=== PATIENT | female | born 1975 | race Caucasian/White ===

== ENCOUNTER 2020-08-15 19:27 | Emergency (ER) | payer OTHER ==
[2020-08-15 20:52] LABS: #Eosinphils 0.3 10x3/uL (0.0-0.5); #Monocytes 0.5 10x3/uL (0.0-1.1); #Neutrophils 10.5 10x3/uL (1.5-8.4); %Basophils 0.3 % (0.0-2.0); %Eosinophils 2.8 % (0.0-6.0); %Lymphocytes 7.6 % (18.0-47.0); %Monocytes 3.8 % (0.0-10.0); %Neutrophils 85.3 % (40.0-75.0); Hemoglobin 13.9 g/dL (12.0-15.5); Mean Corpuscular Hemoglobin 32.9 pg (27.0-33.0); Mean Corpuscular Volume 94.1 fl (81.6-98.3); Mean Platelet Volume 9.9 fl (7.4-10.4); Platelet Count 274 10x3/uL (150-450); RBC Distribution Width 11.9 % (11.5-14.5); Red Blood Cell (RBC) Count 4.22 10x6/uL (3.90-5.03); White Blood Cell (WBC) Count 12.3 10x3/uL (3.5-10.5)
[2020-08-15] MEDS ORDERED: Ketorolac Tromethamine 30 MG/ML VIAL ONE (21:05)
[2020-08-15] MEDS ORDERED: Ondansetron ODT 4 MG TAB ONE (21:05)
[2020-08-15 21:06] LABS: ALT (SGPT) 38 U/L (8-55); AST (SGOT) 46 U/L (5-34); Albumin 4.3 g/dL (3.5-5.0); Alkaline Phosphatase 90 U/L (40-110); Anion Gap 15 mmol/L (10-20); BUN (Urea Nitrogen) 9 mg/dL (7.0-18.7); Calc. Creatinine Clearance 0 mL/min (70-130); Calcium 9.3 mg/dL (7.8-10.44); Carbon Dioxide 25 mmol/L (22-29); Chloride 101 mmol/L (98-107); Globulin 3.4 g/dL (2.4-3.5); Glucose 126 mg/dL (70-105); Potassium 3.5 mmol/L (3.5-5.1); Protein, Total 7.7 g/dL (6.0-8.3); Sodium 137 mmol/L (136-145)
[2020-08-15 21:54] LABS: Bilirubin Neg (Negative); Blood, Urine Negative (Negative); Clarity Clear (Clear); Glucose, Urine (Dipstick) Normal (Negative); Ketone, Urine 15 mg/dL (Negative); Leukocyte Negative (Negative); Nitrite Negative (Negative); Protein, Urine (Dipstick) Negative (Neg-Trace); Specific Gravity, Urine 1.015 (1.002-1.036)
== END 2020-08-15 22:15 | disposition home or self-care (01) ==
LOC: CSHERS 19:27
DX: R11.2 Nausea with vomiting, unspecified (principal); R51.9 Headache, unspecified; E78.5 Hyperlipidemia, unspecified; E11.9 Type 2 diabetes mellitus without complications; K21.9 Gastro-esophageal reflux disease without esophagitis; G40.909 Epilepsy, unspecified, not intractable, without status epilepticus; G47.30 Sleep apnea, unspecified; Z79.899 Other long term (current) drug therapy
CPT/HCPCS: 74018; 80053; 81003; 85025; 96372; J1885; Q0162

== ENCOUNTER 2021-05-05 08:40 | Outpatient (CLI) | payer OTHER ==
[2021-05-05 11:56] LABS: Hemoglobin 12.6 g/dL (12.0-15.5); Mean Corpuscular HGB CONC 33.4 g/dL (32.0-36.0); Mean Corpuscular Hemoglobin 31.5 pg (27.0-33.0); Mean Corpuscular Volume 94.3 fl (81.6-98.3); Mean Platelet Volume 10.4 fl (7.4-10.4); Platelet Count 299 10x3/uL (150-450); RBC Distribution Width 11.9 % (11.5-14.5); White Blood Cell (WBC) Count 8.1 10x3/uL (3.5-10.5)
[2021-05-05 12:10] LABS: Anion Gap 15 mmol/L (10-20); BUN (Urea Nitrogen) 10 mg/dL (7.0-18.7); Calc. Creatinine Clearance 0 mL/min (70-130); Carbon Dioxide 26 mmol/L (22-29); Chloride 105 mmol/L (98-107); Glucose 132 mg/dL (70-105); Potassium 4.1 mmol/L (3.5-5.1); Sodium 142 mmol/L (136-145)
[2021-05-05 17:37] LABS: SARS-CoV-2 PCR by NAA Not Detected (NotDetected)
== END 2021-05-05 08:41 | disposition home or self-care (01) ==
LOC: CSHLAB 08:40
PROVIDERS: ATTEND Orthopaedic Surgery
DX: Z01.818 Encounter for other preprocedural examination (principal); Z20.822 Contact with and (suspected) exposure to COVID-19
CPT/HCPCS: 80048; 85027; 93005; 93010; U0003; U0005

== ENCOUNTER 2021-05-08 05:36 | Day surgery (SDC) | payer OTHER ==
[2021-05-06 13:17] VITALS: BMI 29.2
[2021-05-08] MEDS ORDERED: Bupivacaine PF 0.5% 30 ML VIAL ONE (06:54)
[2021-05-08] MEDS ORDERED: Neomycin-Polymyxin 1 ML AMP ONE (06:55)
[2021-05-08] MEDS ORDERED: Midazolam HCl 2 mg/2 ml Vial ONE (07:06)
[2021-05-08] MEDS ORDERED: Ondansetron PF 4 MG/2 ML Vial ONE (07:42)
[2021-05-08] MEDS ORDERED: Fentanyl 100 MCG/2 ML VIAL ONE ×2 (07:42→09:05)
[2021-05-08] MEDS ORDERED: Dexamethasone 4 mg/ml Vial ONE (07:42)
[2021-05-08] MEDS ORDERED: Lidocaine 2% PF 5 ML VIAL ONE (07:42)
[2021-05-08] MEDS ORDERED: PROPOFOL 20 ML ONE (07:42)
[2021-05-08] MEDS ORDERED: Metoclopramide HCl 10 MG/2 ML VIAL ONE (07:42)
[2021-05-08] MEDS ORDERED: Ketorolac Tromethamine 30 MG/ML VIAL ONE (09:05)
[2021-05-08] MEDS ORDERED: Meperidine HCl/PF 25 MG/ML VIAL ONE (09:53)
== END 2021-05-08 11:45 | disposition home or self-care (01) ==
LOC: CSHSDC 05:36
PROVIDERS: ATTEND Orthopaedic Surgery
PROC: 0LNP0ZZ Release Left Lower Leg Tendon, Open Approach (ICD-10-PCS; principal; 2021-05-08)
DX: S86.312A Strain of muscle(s) and tendon(s) of peroneal muscle group at lower leg level, left leg, initial encounter (principal)
CPT/HCPCS: 36416; C1713; J0690; J1100; J1885; J2001; J2175; J2250; J2405; J2704; J2765; J3010; S0020

== ENCOUNTER 2021-09-23 17:12 | Emergency (ER) | payer OTHER | END 2021-09-23 18:55 | disposition home or self-care (01) | LOC: CSHERS 17:12 | DX: S50.312A Abrasion of left elbow, initial encounter (principal); S70.212A Abrasion, left hip, initial encounter; E78.5 Hyperlipidemia, unspecified; E11.9 Type 2 diabetes mellitus without complications; K21.9 Gastro-esophageal reflux disease without esophagitis; G40.909 Epilepsy, unspecified, not intractable, without status epilepticus; J45.909 Unspecified asthma, uncomplicated; G47.30 Sleep apnea, unspecified; V03.19XA Pedestrian with other conveyance injured in collision with car, pick-up truck or van in traffic accident, initial encounter ==

== ENCOUNTER 2021-10-11 06:22 | Emergency (ER) | payer OTHER | END 2021-10-11 06:44 | disposition home or self-care (01) | LOC: CSHERS 06:22 | DX: J01.90 Acute sinusitis, unspecified (principal); E11.9 Type 2 diabetes mellitus without complications; K21.9 Gastro-esophageal reflux disease without esophagitis; E78.5 Hyperlipidemia, unspecified; J45.909 Unspecified asthma, uncomplicated; G35 Multiple sclerosis; G40.909 Epilepsy, unspecified, not intractable, without status epilepticus; G47.30 Sleep apnea, unspecified | CPT/HCPCS: 99283 ==

== ENCOUNTER 2021-10-13 09:56 | Outpatient (CLI) | payer OTHER ==
[2021-10-13 11:42] LABS: Hemoglobin 13.4 g/dL (12.0-15.5); Mean Corpuscular HGB CONC 33.8 g/dL (32.0-36.0); Mean Corpuscular Hemoglobin 31.5 pg (27.0-33.0); Mean Corpuscular Volume 93.4 fl (81.6-98.3); Mean Platelet Volume 9.5 fl (7.4-10.4); Platelet Count 331 10x3/uL (150-450); RBC Distribution Width 12.1 % (11.5-14.5); Red Blood Cell (RBC) Count 4.25 10x6/uL (3.90-5.03); White Blood Cell (WBC) Count 7.1 10x3/uL (3.5-10.5)
[2021-10-13 12:18] LABS: Anion Gap 20 mmol/L (10-20); BUN (Urea Nitrogen) 5 mg/dL (7.0-18.7); Calc. Creatinine Clearance 0 mL/min (70-130); Calcium 9.5 mg/dL (7.8-10.44); Carbon Dioxide 22 mmol/L (22-29); Chloride 103 mmol/L (98-107); Glucose 104 mg/dL (70-105); Potassium 4.1 mmol/L (3.5-5.1); Sodium 141 mmol/L (136-145)
[2021-10-13 20:11] LABS: SARS-CoV-2 PCR by NAA Not Detected (NotDetected)
== END 2021-10-13 09:57 | disposition home or self-care (01) ==
LOC: CSHLAB 09:56
PROVIDERS: ATTEND Orthopaedic Surgery
DX: Z01.818 Encounter for other preprocedural examination (principal); Z20.822 Contact with and (suspected) exposure to COVID-19; M76.72 Peroneal tendinitis, left leg; S86.312A Strain of muscle(s) and tendon(s) of peroneal muscle group at lower leg level, left leg, initial encounter
CPT/HCPCS: 80048; 85027; 93005; 93010; U0003; U0005

== ENCOUNTER 2021-10-16 05:40 | Day surgery (SDC) | payer OTHER ==
[2021-10-14 13:28] VITALS: BMI 29.9
[2021-10-16] MEDS ORDERED: Lidocaine 1% MPF 2 ML VIAL ONE (06:55)
[2021-10-16] MEDS ORDERED: Bupivacaine PF 0.5% 30 ML VIAL ONE (06:59)
[2021-10-16] MEDS ORDERED: Neomycin-Polymyxin 1 ML AMP ONE (06:59)
[2021-10-16] MEDS ORDERED: EPINEPHrine 1 MG/ML AMP ONE (07:10)
[2021-10-16] MEDS ORDERED: Fentanyl 100 MCG/2 ML VIAL ONE ×2 (07:19→09:33)
[2021-10-16] MEDS ORDERED: Midazolam HCl 2 mg/2 ml Vial ONE (07:19)
[2021-10-16] MEDS ORDERED: Ropivacaine 0.5% HCl/PF (150 MG/30 ML VIAL) ONE (07:32)
[2021-10-16] MEDS ORDERED: ceFAZolin 2 GM/Dextrose 50 ML IVPB ONE (07:40)
[2021-10-16] MEDS ORDERED: PROPOFOL 20 ML ONE ×2 (07:47→08:26)
[2021-10-16] MEDS ORDERED: Esmolol 100 MG/10 ML VIAL ONE (08:14)
[2021-10-16] MEDS ORDERED: Dexamethasone 20 MG/5 ML VIAL ONE (08:14)
[2021-10-16] MEDS ORDERED: Ondansetron PF 4 MG/2 ML Vial ONE (08:14)
[2021-10-16] MEDS ORDERED: Metoclopramide HCl 10 MG/2 ML VIAL ONE (08:14)
[2021-10-16] MEDS ORDERED: SUGAMMADEX SODIUM 200 MG/2 ML VIAL ONE ×2 (08:18→08:58)
[2021-10-16] MEDS ORDERED: Metoprolol Tartrate 5 MG/5 ML VIAL ONE (08:27)
[2021-10-16] MEDS ORDERED: Albuterol Sulfate HFA (OR ONLY) ONE (08:28)
== END 2021-10-16 12:25 | disposition home or self-care (01) ==
LOC: CSHSDC 05:40
PROVIDERS: ATTEND Orthopaedic Surgery
PROC: 0LUW0KZ Supplement Left Foot Tendon with Nonautologous Tissue Substitute, Open Approach (ICD-10-PCS; principal; 2021-10-16)
DX: S86.312A Strain of muscle(s) and tendon(s) of peroneal muscle group at lower leg level, left leg, initial encounter (principal); M76.72 Peroneal tendinitis, left leg; E11.9 Type 2 diabetes mellitus without complications; K21.9 Gastro-esophageal reflux disease without esophagitis; Z88.5 Allergy status to narcotic agent; Z88.0 Allergy status to penicillin; Z88.8 Allergy status to other drugs, medicaments and biological substances; Z91.048 Other nonmedicinal substance allergy status
CPT/HCPCS: 36416; C1713; C1762; J0171; J0690; J1100; J2250; J2405; J2704; J2765; J2795; J3010; S0020

== ENCOUNTER 2021-12-10 15:01 | Outpatient (CLI) | payer OTHER | END 2021-12-10 15:02 | disposition home or self-care (01) | LOC: CSHMRI 15:01 | PROVIDERS: ATTEND Neurological Surgery | DX: M51.36 Other intervertebral disc degeneration, lumbar region (principal); M54.50 Low back pain, unspecified; M47.816 Spondylosis without myelopathy or radiculopathy, lumbar region | CPT/HCPCS: 72148 ==

== ENCOUNTER 2022-04-29 22:53 | Emergency (ER) | payer OTHER | END 2022-04-29 23:47 | disposition left against medical advice (07) | LOC: CSHERS 22:53 | DX: Z53.21 Procedure and treatment not carried out due to patient leaving prior to being seen by health care provider (principal) ==

== ENCOUNTER 2022-05-28 05:09 | Emergency (ER) | payer OTHER ==
[2022-05-28] MEDS ORDERED: Ipratropium/Albuterol 3 ML NEB ONE (05:21)
[2022-05-28] MEDS ORDERED: methylPREDNISolone Sod Succ/PF 125 MG/2 ML VIAL ONE (05:21)
== END 2022-05-28 07:27 | disposition home or self-care (01) ==
LOC: CSHERS 05:09
DX: J45.901 Unspecified asthma with (acute) exacerbation (principal); E78.5 Hyperlipidemia, unspecified; E11.9 Type 2 diabetes mellitus without complications; K21.9 Gastro-esophageal reflux disease without esophagitis; G40.909 Epilepsy, unspecified, not intractable, without status epilepticus; G43.909 Migraine, unspecified, not intractable, without status migrainosus
CPT/HCPCS: 94644; 94760; 96372; J2930; J7611; J7620

== ENCOUNTER 2022-07-11 23:54 | Observation (INO) | payer OTHER ==
[2022-07-12 00:31] LABS: #Monocytes 0.2 10x3/uL (0.0-1.1); #Neutrophils 7.7 10x3/uL (1.5-8.4); %Basophils 0.2 % (0.0-2.0); %Lymphocytes 16.4 % (18.0-47.0); %Monocytes 2.4 % (0.0-10.0); %Neutrophils 80.5 % (40.0-75.0); Hemoglobin 12.8 g/dL (12.0-15.5); Mean Corpuscular Hemoglobin 31.2 pg (27.0-33.0); Mean Corpuscular Volume 91.7 fl (81.6-98.3); Platelet Count 351 10x3/uL (150-450); RBC Distribution Width 12.2 % (11.5-14.5); White Blood Cell (WBC) Count 9.5 10x3/uL (3.5-10.5)
[2022-07-12 00:36] LABS: ALT (SGPT) 17 U/L (8-55); AST (SGOT) 14 U/L (5-34); Albumin 4.7 g/dL (3.5-5.0); Alkaline Phosphatase 62 U/L (40-110); Anion Gap 17 mmol/L (10-20); BUN (Urea Nitrogen) 14 mg/dL (7.0-18.7); Bilirubin, Total 0.3 mg/dL (0.2-1.2); Calc. Creatinine Clearance 0 mL/min (70-130); Calcium 9.4 mg/dL (7.8-10.44); Carbon Dioxide 22 mmol/L (22-29); Chloride 104 mmol/L (98-107); Estimated GFR 91; Glucose 257 mg/dL (70-105); Lipase 23 U/L (8-78); Protein, Total 7.7 g/dL (6.0-8.3); Sodium 139 mmol/L (136-145)
[2022-07-12] MEDS ORDERED: Morphine 4 MG/ML VIAL ONE ×2 (00:37→01:52)
[2022-07-12] MEDS ORDERED: Ketorolac Tromethamine 30 MG/ML VIAL ONE (01:52)
[2022-07-12] MEDS ORDERED: Nitroglycerin 2% Ointment 1 INCH/1 GM Packet ONE (05:04)
[2022-07-12 06:34] VITALS: BMI 29.9
[2022-07-12] MEDS ORDERED: Dextrose 50% Abboject 50 ML SYRINGE SLOW IVP PRN (07:27)
[2022-07-12] MEDS ORDERED: HumaLOG 300 UNITS/3 ML VIAL SC PRN (07:27)
[2022-07-12] MEDS ORDERED: Dextrose 5% in Water 1,000 ML IV PRN (07:27)
[2022-07-12 07:38] LABS: Troponin I Less than 0.010 ng/mL (< 0.028)
[2022-07-12] MEDS ORDERED: Morphine 2 MG/ML VIAL SLOW IVP PRN (08:15)
[2022-07-12] MEDS ORDERED: Acetaminophen 325 MG TAB PO PRN (08:16)
[2022-07-12] MEDS ORDERED: Loratadine 10 MG TAB PO SCH (09:00)
[2022-07-12] MEDS ORDERED: Escitalopram Oxalate 10 mg Tablet PO SCH ×2 (09:00→21:00)
[2022-07-12 16:48] VITALS: BP 120/75; TEMP 98
[2022-07-12] MEDS ORDERED: Atorvastatin Calcium 40 MG TAB PO SCH (21:00)
== END 2022-07-12 19:25 | disposition home or self-care (01) ==
LOC: CSHERS 23:54 → CSHTELE 07-12 06:27
PROVIDERS: ADMIT Family Medicine; ATTEND Nurse Practitioner Family
DX: R07.89 Other chest pain (principal); E11.9 Type 2 diabetes mellitus without complications; K21.9 Gastro-esophageal reflux disease without esophagitis; E78.49 Other hyperlipidemia; H54.8 Legal blindness, as defined in USA; G35 Multiple sclerosis; I48.0 Paroxysmal atrial fibrillation; F32.A Depression, unspecified; Z79.899 Other long term (current) drug therapy; Z79.84 Long term (current) use of oral hypoglycemic drugs; Z88.0 Allergy status to penicillin; Z88.8 Allergy status to other drugs, medicaments and biological substances
CPT/HCPCS: 36416; 71045; 80053; 83690; 84484; 85025; 93005; 93010; 93306; 96372; 96374; 96375; 96376; G0378; J1650; J1885; J2270

== ENCOUNTER 2022-07-17 19:39 | Inpatient (IN) | payer OTHER ==
[2022-07-17 21:15] LABS: #Basophils 0.1 10x3/uL (0.0-0.2); #Eosinphils 0.4 10x3/uL (0.0-0.5); #Monocytes 0.7 10x3/uL (0.0-1.1); #Neutrophils 6.3 10x3/uL (1.5-8.4); %Basophils 0.7 % (0.0-2.0); %Eosinophils 3.7 % (0.0-6.0); %Lymphocytes 31.4 % (18.0-47.0); %Monocytes 6.6 % (0.0-10.0); %Neutrophils 57.4 % (40.0-75.0); Mean Corpuscular HGB CONC 34.1 g/dL (32.0-36.0); Mean Corpuscular Hemoglobin 31.8 pg (27.0-33.0); Mean Corpuscular Volume 93.2 fl (81.6-98.3); Mean Platelet Volume 9.4 fl (7.4-10.4); Platelet Count 337 10x3/uL (150-450); RBC Distribution Width 12.3 % (11.5-14.5); Red Blood Cell (RBC) Count 4.09 10x6/uL (3.90-5.03); White Blood Cell (WBC) Count 10.9 10x3/uL (3.5-10.5)
[2022-07-17 21:19] LABS: ALT (SGPT) 21 U/L (8-55); AST (SGOT) 19 U/L (5-34); Albumin 4.5 g/dL (3.5-5.0); Alkaline Phosphatase 61 U/L (40-110); Anion Gap 16 mmol/L (10-20); BUN (Urea Nitrogen) 17 mg/dL (7.0-18.7); Bilirubin, Total 0.6 mg/dL (0.2-1.2); Calc. Creatinine Clearance 0 mL/min (70-130); Calcium 9.9 mg/dL (7.8-10.44); Carbon Dioxide 23 mmol/L (22-29); Chloride 105 mmol/L (98-107); Estimated GFR 97; Globulin 3.2 g/dL (2.4-3.5); Glucose 140 mg/dL (70-105); Potassium 3.4 mmol/L (3.5-5.1); Protein, Total 7.7 g/dL (6.0-8.3); Sodium 141 mmol/L (136-145)
[2022-07-17 21:37] LABS: SARS-CoV-2 NAA Rapid Test Not Detected (NotDetected)
[2022-07-17] MEDS ORDERED: methylPREDNISolone Sod Succ 1 GM in Sodium Chloride 0.9% 250 ML 250 ML IVPB SCH (22:45)
[2022-07-17] MEDS ORDERED: Calcium Carbonate 500 MG ChewTAB PO PRN (23:10)
[2022-07-17] MEDS ORDERED: Guaifenesin DM 100-10/5 ML UDCUP PO PRN (23:10)
[2022-07-17] MEDS ORDERED: Dextrose 5% in Water 1,000 ML IV PRN (23:10)
[2022-07-17] MEDS ORDERED: Ondansetron PF 4 MG/2 ML Vial IVP PRN (23:10)
[2022-07-17] MEDS ORDERED: Acetaminophen 325 MG TAB PO PRN (23:10)
[2022-07-17] MEDS ORDERED: Senokot S 8.6-50 MG TAB PO PRN (23:10)
[2022-07-17] MEDS ORDERED: Dextrose 50% Abboject 50 ML SYRINGE SLOW IVP PRN (23:10)
[2022-07-17 23:28] LABS: INR-International Normal Ratio 0.9; PTT 25.7 sec (22.0-33.0); Prothrombin Time 10.2 sec (9.5-12.1)
[2022-07-17] MEDS ORDERED: Ipratropium/Albuterol 3 ML NEB NEB PRN (23:28)
[2022-07-18 00:19] VITALS: BMI 29.8
[2022-07-18] MEDS ORDERED: Potassium Chloride 20 MEQ TAB PO SCH (00:45)
[2022-07-18 04:00] LABS: Bilirubin Neg (Negative); Blood, Urine Negative (Negative); Clarity Clear (Clear); Glucose, Urine (Dipstick) 100 mg/dL (Negative); Ketone, Urine 5 mg/dL (Negative); Leukocyte Negative (Negative); Nitrite Negative (Negative); Protein, Urine (Dipstick) Negative (Neg-Trace); Specific Gravity, Urine 1.015 (1.005-1.030); Urobilinogen Normal mg/dL (Less than 2)
[2022-07-18 04:31] LABS: Bacteria/HPF None Seen HPF (None Seen); RBC/HPF None Seen HPF (0-3); Squamous Epithelial 0-3 HPF (0-3); WBC/HPF 0-3 HPF (0-3)
[2022-07-18 04:35] LABS: #Basophils 0.1 10x3/uL (0.0-0.2); #Eosinphils 0.1 10x3/uL (0.0-0.5); #Monocytes 0.1 10x3/uL (0.0-1.1); %Basophils 0.4 % (0.0-2.0); %Eosinophils 0.4 % (0.0-6.0); %Lymphocytes 11.5 % (18.0-47.0); %Monocytes 0.7 % (0.0-10.0); %Neutrophils 86.5 % (40.0-75.0); Mean Corpuscular HGB CONC 33.6 g/dL (32.0-36.0); Mean Corpuscular Hemoglobin 31.1 pg (27.0-33.0); Mean Corpuscular Volume 92.6 fl (81.6-98.3); Mean Platelet Volume 9.7 fl (7.4-10.4); Platelet Count 350 10x3/uL (150-450); RBC Distribution Width 12.4 % (11.5-14.5); Red Blood Cell (RBC) Count 4.18 10x6/uL (3.90-5.03); White Blood Cell (WBC) Count 11.6 10x3/uL (3.5-10.5)
[2022-07-18 04:48] LABS: Anion Gap 18 mmol/L (10-20); BUN (Urea Nitrogen) 16 mg/dL (7.0-18.7); Calc. Creatinine Clearance 112 mL/min (70-130); Calcium 9.3 mg/dL (7.8-10.44); Carbon Dioxide 20 mmol/L (22-29); Chloride 104 mmol/L (98-107); Estimated GFR 103; Glucose 206 mg/dL (70-105); Magnesium 1.5 mg/dL (1.6-2.6); Potassium 4.4 mmol/L (3.5-5.1); Sodium 138 mmol/L (136-145)
[2022-07-18 05:09] LABS: Thyroid Stimulating Hormone 0.9998 uIU/mL (0.35-4.94)
[2022-07-18] MEDS ORDERED: metFORMIN 500 MG TAB PO SCH (08:00)
[2022-07-18] MEDS ORDERED: Alogliptin 25 MG TAB PO SCH (08:00)
[2022-07-18] MEDS ORDERED: Electrolyte Replacement Protocol 1 EACH FS SCH (08:00)
[2022-07-18] MEDS ORDERED: Magnesium 2 GM/50 ML(in water) 2 GM in Premix Bag 1 BAG IVPB SCH (08:15)
[2022-07-18] MEDS: Loratadine 10 MG TAB PO SCH (09:48)
[2022-07-18] MEDS ORDERED: Magnevist 469MG/ML 20 ML VIAL ONE (11:22)
[2022-07-18] MEDS: HumaLOG 300 UNITS/3 ML VIAL SC PRN ×2 (13:00→18:38)
[2022-07-18] MEDS: Escitalopram Oxalate 10 mg Tablet PO SCH (20:42)
[2022-07-18] MEDS: Atorvastatin Calcium 10 MG TAB PO SCH (20:42)
[2022-07-18] MEDS: methylPREDNISolone Sod Succ 1 GM in Sodium Chloride 0.9% 250 ML 250 ML IVPB SCH (22:18)
[2022-07-18] MEDS ORDERED: methylPREDNISolone Sod Succ/PF 125 MG/2 ML VIAL IVP SCH (23:15)
[2022-07-19 05:05] LABS: #Monocytes 0.1 10x3/uL (0.0-1.1); #Neutrophils 13.7 10x3/uL (1.5-8.4); %Basophils 0.1 % (0.0-2.0); %Monocytes 0.8 % (0.0-10.0); %Neutrophils 87.3 % (40.0-75.0); Hemoglobin 12.6 g/dL (12.0-15.5); Mean Corpuscular HGB CONC 33.3 g/dL (32.0-36.0); Mean Corpuscular Hemoglobin 31.3 pg (27.0-33.0); Mean Platelet Volume 9.9 fl (7.4-10.4); Platelet Count 389 10x3/uL (150-450); RBC Distribution Width 12.2 % (11.5-14.5); Red Blood Cell (RBC) Count 4.02 10x6/uL (3.90-5.03); White Blood Cell (WBC) Count 15.7 10x3/uL (3.5-10.5)
[2022-07-19 05:20] LABS: Anion Gap 21 mmol/L (10-20); BUN (Urea Nitrogen) 17 mg/dL (7.0-18.7); Calc. Creatinine Clearance 110 mL/min (70-130); Calcium 9.2 mg/dL (7.8-10.44); Carbon Dioxide 17 mmol/L (22-29); Chloride 103 mmol/L (98-107); Estimated GFR 101; Glucose 250 mg/dL (70-105); Phosphorus 3.5 mg/dL (2.3-4.7); Potassium 4.5 mmol/L (3.5-5.1); Sodium 136 mmol/L (136-145)
[2022-07-19] MEDS ORDERED: Magnesium 2 GM/50 ML(in water) 2 GM in Premix Bag 1 BAG IVPB SCH (08:00)
[2022-07-19] MEDS ORDERED: Magnevist 469MG/ML 20 ML VIAL ONE (11:26)
[2022-07-19] MEDS: Loratadine 10 MG TAB PO SCH (11:56)
[2022-07-19] MEDS: HumaLOG 300 UNITS/3 ML VIAL SC PRN (11:57)
[2022-07-19 20:01] LABS: INR-International Normal Ratio 0.9; PTT 26.1 sec (22.0-33.0); Prothrombin Time 10.3 sec (9.5-12.1)
[2022-07-19] MEDS: Atorvastatin Calcium 10 MG TAB PO SCH (21:08)
[2022-07-19] MEDS: Escitalopram Oxalate 10 mg Tablet PO SCH (21:08)
[2022-07-19] MEDS: methylPREDNISolone Sod Succ 1 GM in Sodium Chloride 0.9% 250 ML 250 ML IVPB SCH (22:49)
[2022-07-20 04:32] LABS: #Monocytes 0.2 10x3/uL (0.0-1.1); #Neutrophils 12.3 10x3/uL (1.5-8.4); %Basophils 0.1 % (0.0-2.0); %Lymphocytes 9.2 % (18.0-47.0); %Monocytes 1.2 % (0.0-10.0); %Neutrophils 89.1 % (40.0-75.0); Hemoglobin 12.2 g/dL (12.0-15.5); Mean Corpuscular HGB CONC 33.3 g/dL (32.0-36.0); Mean Corpuscular Hemoglobin 31.4 pg (27.0-33.0); Mean Corpuscular Volume 94.3 fl (81.6-98.3); Mean Platelet Volume 10.1 fl (7.4-10.4); Platelet Count 345 10x3/uL (150-450); RBC Distribution Width 12.4 % (11.5-14.5); Red Blood Cell (RBC) Count 3.88 10x6/uL (3.90-5.03); White Blood Cell (WBC) Count 13.8 10x3/uL (3.5-10.5)
[2022-07-20 04:49] LABS: Anion Gap 16 mmol/L (10-20); BUN (Urea Nitrogen) 21 mg/dL (7.0-18.7); Calc. Creatinine Clearance 112 mL/min (70-130); Calcium 8.8 mg/dL (7.8-10.44); Carbon Dioxide 21 mmol/L (22-29); Chloride 102 mmol/L (98-107); Estimated GFR 103; Glucose 262 mg/dL (70-105); Magnesium 2.3 mg/dL (1.6-2.6); Potassium 4.5 mmol/L (3.5-5.1); Sodium 134 mmol/L (136-145)
[2022-07-20] MEDS: Loratadine 10 MG TAB PO SCH (08:11)
[2022-07-20] MEDS: Alogliptin 6.25 MG TAB PO SCH ×2 (08:34→16:38)
[2022-07-20] MEDS ORDERED: Lantus 1000 UNITS/10 ML VIAL SC SCH (10:15)
[2022-07-20] MEDS ORDERED: Lidocaine 1% PF 5 ML VIAL ONE ×2 (13:45→14:00)
[2022-07-20] MEDS ORDERED: Sodium Bicarbonate 2.5 MEQ/5 ML VIAL ONE (13:45)
[2022-07-20 15:20] LABS: CSF, Glucose 157 mg/dl (40-70); CSF, Protein 28 mg/dL (15-40)
[2022-07-20 15:56] LABS: Color Of CSF Supernatant COLORLESS (Colorless); Unspun CSF Color YELLOW (Colorless)
[2022-07-20 15:57] LABS: Tube # 1
[2022-07-20 16:07] LABS: CSF Source CSF; Clarity Clear (Clear); Tube # 3
[2022-07-20 16:08] LABS: CSF RBC Count - Manual 0 /cu.mm (None Seen); CSF WBC/NonHematics Count-Man 0 /cu.mm (0-5)
[2022-07-20] MEDS: HumaLOG 300 UNITS/3 ML VIAL SC PRN ×2 (16:38→23:49)
[2022-07-20] MEDS: Atorvastatin Calcium 10 MG TAB PO SCH (20:39)
[2022-07-20] MEDS: Escitalopram Oxalate 10 mg Tablet PO SCH (20:39)
[2022-07-20] MEDS: methylPREDNISolone Sod Succ 1 GM in Sodium Chloride 0.9% 250 ML 250 ML IVPB SCH (23:28)
[2022-07-21] MEDS: HumaLOG 300 UNITS/3 ML VIAL SC PRN ×4 (06:33→23:27)
[2022-07-21] MEDS: Alogliptin 6.25 MG TAB PO SCH ×2 (08:26→17:51)
[2022-07-21] MEDS: Lantus 1000 UNITS/10 ML VIAL SC SCH (08:26)
[2022-07-21] MEDS: Loratadine 10 MG TAB PO SCH (08:27)
[2022-07-21] MEDS: Atorvastatin Calcium 10 MG TAB PO SCH (20:04)
[2022-07-21] MEDS: Escitalopram Oxalate 10 mg Tablet PO SCH (20:04)
[2022-07-21] MEDS: methylPREDNISolone Sod Succ 1 GM in Sodium Chloride 0.9% 250 ML 250 ML IVPB SCH (23:21)
[2022-07-22] MEDS: HumaLOG 300 UNITS/3 ML VIAL SC PRN ×3 (06:14→17:27)
[2022-07-22] MEDS: Loratadine 10 MG TAB PO SCH (08:45)
[2022-07-22] MEDS: Lantus 1000 UNITS/10 ML VIAL SC SCH (08:45)
[2022-07-22] MEDS: Alogliptin 6.25 MG TAB PO SCH ×2 (08:45→17:27)
[2022-07-22 14:37] LABS: IgG Subclass 1 447 mg/dL (248-810); IgG Subclass 2 320 mg/dL (130-555); IgG Subclass 3 102 mg/dL (15-102); Immunoglobulin - G (Sendout) 880 mg/dL (586-1602)
[2022-07-22] MEDS ORDERED: Lantus 1000 UNITS/10 ML VIAL SC SCH (21:00)
[2022-07-22] MEDS: Atorvastatin Calcium 10 MG TAB PO SCH (22:56)
[2022-07-22] MEDS: Escitalopram Oxalate 10 mg Tablet PO SCH (22:56)
[2022-07-22] MEDS: methylPREDNISolone Sod Succ 1 GM in Sodium Chloride 0.9% 250 ML 250 ML IVPB SCH (23:07)
[2022-07-23] MEDS: HumaLOG 300 UNITS/3 ML VIAL SC PRN (06:22)
[2022-07-23 08:10] VITALS: BP 131/82; TEMP 98
[2022-07-23] MEDS: Alogliptin 6.25 MG TAB PO SCH (09:10)
[2022-07-23] MEDS: Loratadine 10 MG TAB PO SCH (09:11)
[2022-07-23] MEDS: Lantus 1000 UNITS/10 ML VIAL SC SCH (09:14)
== END 2022-07-23 12:25 | disposition home or self-care (01) | DRG 60 ==
LOC: CSHERS 19:39 → CSHTELE 23:10 → UNDOADMIN 07-18 00:14 → CSHTELE 07-18 00:14
PROVIDERS: ADMIT Student in an Organized Health Care Education/Training Program; ATTEND Internal Medicine
PROC: 009U3ZX Drainage of Spinal Canal, Percutaneous Approach, Diagnostic (ICD-10-PCS; principal; 2022-07-20)
PROC: B01B1ZZ Fluoroscopy of Spinal Cord using Low Osmolar Contrast (ICD-10-PCS; 2022-07-20)
DX: G35 Multiple sclerosis (principal); I48.0 Paroxysmal atrial fibrillation; G81.91 Hemiplegia, unspecified affecting right dominant side; E11.9 Type 2 diabetes mellitus without complications; H54.40 Blindness, one eye, unspecified eye; K21.9 Gastro-esophageal reflux disease without esophagitis; E78.5 Hyperlipidemia, unspecified; F43.10 Post-traumatic stress disorder, unspecified; F32.A Depression, unspecified; E66.9 Obesity, unspecified; J45.909 Unspecified asthma, uncomplicated; R53.1 Weakness; H53.8 Other visual disturbances; G43.909 Migraine, unspecified, not intractable, without status migrainosus; G40.909 Epilepsy, unspecified, not intractable, without status epilepticus; G47.33 Obstructive sleep apnea (adult) (pediatric); E87.6 Hypokalemia; Z88.6 Allergy status to analgesic agent; Z88.5 Allergy status to narcotic agent; Z88.0 Allergy status to penicillin; Z88.8 Allergy status to other drugs, medicaments and biological substances; Z79.899 Other long term (current) drug therapy; Z90.49 Acquired absence of other specified parts of digestive tract; Z90.710 Acquired absence of both cervix and uterus; Z98.890 Other specified postprocedural states; Z82.49 Family history of ischemic heart disease and other diseases of the circulatory system; Z87.891 Personal history of nicotine dependence; Z68.29 Body mass index [BMI] 29.0-29.9, adult; Z20.822 Contact with and (suspected) exposure to COVID-19
CPT/HCPCS: 36415; 36416; 62270; 70450; 70553; 72156; 72157; 72158; 80048; 80053; 81001; 82607; 82787; 82945; 83735; 83916; 84100; 84157; 84443; 85025; 85610; 85652; 85730; 86140; 89051; 93005; 93880; 94760; 96365; A9579; J1650; J1815; J2930; J3475; J7050

== ENCOUNTER 2022-07-25 14:24 | Emergency (ER) | payer OTHER | END 2022-07-25 15:33 | disposition home or self-care (01) | LOC: CSHERS 14:24 | DX: G35 Multiple sclerosis (principal); I48.91 Unspecified atrial fibrillation; K21.9 Gastro-esophageal reflux disease without esophagitis; G43.909 Migraine, unspecified, not intractable, without status migrainosus; J45.909 Unspecified asthma, uncomplicated; G40.909 Epilepsy, unspecified, not intractable, without status epilepticus; E11.9 Type 2 diabetes mellitus without complications | CPT/HCPCS: 99284 ==

== ENCOUNTER 2022-09-13 22:44 | Observation (INO) | payer OTHER ==
[2022-09-13 23:41] LABS: #Basophils 0.1 10x3/uL (0.0-0.2); #Eosinphils 1.6 10x3/uL (0.0-0.5); #Monocytes 1.8 10x3/uL (0.0-1.1); #Neutrophils 9.9 10x3/uL (1.5-8.4); %Basophils 0.8 % (0.0-2.0); %Eosinophils 9.4 % (0.0-6.0); %Lymphocytes 21.7 % (18.0-47.0); %Monocytes 10.2 % (0.0-10.0); %Neutrophils 57.6 % (40.0-75.0); Mean Corpuscular Hemoglobin 31.7 pg (27.0-33.0); Mean Corpuscular Volume 93.2 fl (81.6-98.3); Mean Platelet Volume 9.6 fl (7.4-10.4); Platelet Count 489 10x3/uL (150-450); RBC Distribution Width 12.5 % (11.5-14.5); Red Blood Cell (RBC) Count 2.21 10x6/uL (3.90-5.03); White Blood Cell (WBC) Count 17.2 10x3/uL (3.5-10.5)
[2022-09-13 23:51] LABS: BHCG - Serum Negative (NEGATIVE); Pregs Control Background? CLEAR/WHITE (CLR/WHITE); Pregs Control Bar Appear? YES (CONTROL BAR)
[2022-09-13 23:52] LABS: ALT (SGPT) 15 U/L (8-55); AST (SGOT) 17 U/L (5-34); Albumin 4.3 g/dL (3.5-5.0); Alkaline Phosphatase 97 U/L (40-110); Anion Gap 19 mmol/L (10-20); BUN (Urea Nitrogen) 7 mg/dL (7.0-18.7); Bilirubin, Total 0.5 mg/dL (0.2-1.2); Calc. Creatinine Clearance 0 mL/min (70-130); Calcium 9.3 mg/dL (7.8-10.44); Carbon Dioxide 21 mmol/L (22-29); Chloride 102 mmol/L (98-107); Estimated GFR 109; Globulin 3.4 g/dL (2.4-3.5); Glucose 123 mg/dL (70-105); Magnesium 1.5 mg/dL (1.6-2.6); Potassium 3.7 mmol/L (3.5-5.1); Protein, Total 7.7 g/dL (6.0-8.3); Sodium 138 mmol/L (136-145)
[2022-09-14] MEDS ORDERED: Guaifenesin DM 100-10/5 ML UDCUP PO PRN (00:43)
[2022-09-14] MEDS ORDERED: Dextrose 5% in Water 1,000 ML IV PRN (00:43)
[2022-09-14] MEDS ORDERED: Senokot S 8.6-50 MG TAB PO PRN (00:43)
[2022-09-14] MEDS ORDERED: Zolpidem Tartrate 5 MG TAB PO PRN (00:43)
[2022-09-14] MEDS ORDERED: Ondansetron PF 4 MG/2 ML Vial IVP PRN (00:43)
[2022-09-14] MEDS ORDERED: Dextrose 50% Abboject 50 ML SYRINGE SLOW IVP PRN (00:43)
[2022-09-14] MEDS ORDERED: Calcium Carbonate 500 MG ChewTAB PO PRN (00:43)
[2022-09-14] MEDS ORDERED: Acetaminophen 325 MG TAB PO PRN (00:43)
[2022-09-14] MEDS ORDERED: LINACLOTIDE 290 MCG PO PRN (00:47)
[2022-09-14] MEDS ORDERED: Magnesium Sulfate/D5W 1 GM/100 ML BAG IVPB SCH (01:00)
[2022-09-14] MEDS ORDERED: Pantoprazole 40 MG VIAL IVP SCH ×3 (01:00→21:00)
[2022-09-14 01:31] LABS: MONO NEGATIVE CONTROL ZONE White (Negative) (White); MONO POSITIVE CONTROL Pink Line (Positive) (PINK/RED); Mononucleosis NEGATIVE (NEGATIVE)
[2022-09-14 01:40] LABS: Iron 36 ug/dL (50-170); Iron Binding Capacity, Total 359 mcg/dL (265-497)
[2022-09-14 01:56] LABS: Ferritin 113.72 ng/mL (10-291)
[2022-09-14] MEDS ORDERED: Pantoprazole 40 MG VIAL ONE ×2 (04:04→07:37)
[2022-09-14] MEDS ORDERED: metFORMIN 500 MG TAB ONE (07:37)
[2022-09-14] MEDS: metFORMIN 500 MG TAB PO SCH ×2 (08:14→16:39)
[2022-09-14 08:19] VITALS: BMI 30.1
[2022-09-14] MEDS ORDERED: HumaLOG 300 UNITS/3 ML VIAL SC PRN ×2 (08:45)
[2022-09-14 08:51] LABS: #Basophils 0.1 10x3/uL (0.0-0.2); #Eosinphils 1.1 10x3/uL (0.0-0.5); #Monocytes 1.4 10x3/uL (0.0-1.1); #Neutrophils 8.1 10x3/uL (1.5-8.4); %Basophils 0.9 % (0.0-2.0); %Eosinophils 8.1 % (0.0-6.0); %Lymphocytes 17.3 % (18.0-47.0); %Monocytes 10.9 % (0.0-10.0); %Neutrophils 62.4 % (40.0-75.0); Hemoglobin 14.1 g/dL (12.0-15.5); Mean Corpuscular HGB CONC 34.1 g/dL (32.0-36.0); Mean Corpuscular Hemoglobin 31.2 pg (27.0-33.0); Mean Corpuscular Volume 91.4 fl (81.6-98.3); Mean Platelet Volume 9.9 fl (7.4-10.4); Platelet Count 349 10x3/uL (150-450); RBC Distribution Width 13.5 % (11.5-14.5); Red Blood Cell (RBC) Count 4.52 10x6/uL (3.90-5.03); White Blood Cell (WBC) Count 12.9 10x3/uL (3.5-10.5)
[2022-09-14 12:00] LABS: #Basophils 0.1 10x3/uL (0.0-0.2); #Monocytes 1.4 10x3/uL (0.0-1.1); #Neutrophils 7.8 10x3/uL (1.5-8.4); %Basophils 0.7 % (0.0-2.0); %Eosinophils 7.8 % (0.0-6.0); %Lymphocytes 17.5 % (18.0-47.0); %Monocytes 11.4 % (0.0-10.0); %Neutrophils 62.2 % (40.0-75.0); Hemoglobin 14.3 g/dL (12.0-15.5); Mean Corpuscular HGB CONC 34.4 g/dL (32.0-36.0); Mean Platelet Volume 9.2 fl (7.4-10.4); Platelet Count 328 10x3/uL (150-450); RBC Distribution Width 13.8 % (11.5-14.5); Red Blood Cell (RBC) Count 4.62 10x6/uL (3.90-5.03); White Blood Cell (WBC) Count 12.5 10x3/uL (3.5-10.5)
[2022-09-14] MEDS: Loratadine 10 MG TAB PO SCH (12:09)
[2022-09-14 13:59] LABS: SARS-CoV-2 NAA Rapid Test Not Detected (NotDetected)
[2022-09-14] MEDS ORDERED: Atorvastatin Calcium 10 MG TAB PO SCH (21:00)
[2022-09-14] MEDS ORDERED: Montelukast Sodium 10 mg Tablet PO SCH (21:00)
[2022-09-14] MEDS ORDERED: Escitalopram Oxalate 10 mg Tablet PO SCH (21:00)
[2022-09-15] MEDS: Loratadine 10 MG TAB PO SCH (09:10)
[2022-09-15] MEDS: metFORMIN 500 MG TAB PO SCH ×2 (09:10→19:30)
[2022-09-15 17:08] VITALS: BP 139/99; TEMP 98.8
== END 2022-09-15 17:55 | disposition home or self-care (01) ==
LOC: CSHERS 22:44 → CSHERHOLD 09-14 00:31 → INTOOBSV 09-14 00:31 → CSHTELE 09-14 09:30
PROVIDERS: ADMIT Student in an Organized Health Care Education/Training Program; ATTEND Internal Medicine
DX: D72.829 Elevated white blood cell count, unspecified (principal); D64.9 Anemia, unspecified; I48.0 Paroxysmal atrial fibrillation; E11.9 Type 2 diabetes mellitus without complications; K21.9 Gastro-esophageal reflux disease without esophagitis; E78.5 Hyperlipidemia, unspecified; J96.01 Acute respiratory failure with hypoxia; E83.42 Hypomagnesemia; E66.9 Obesity, unspecified; F60.3 Borderline personality disorder; F32.A Depression, unspecified; G47.33 Obstructive sleep apnea (adult) (pediatric); Z90.49 Acquired absence of other specified parts of digestive tract; Z86.69 Personal history of other diseases of the nervous system and sense organs; Z90.710 Acquired absence of both cervix and uterus; Z87.891 Personal history of nicotine dependence; Z88.5 Allergy status to narcotic agent; Z88.6 Allergy status to analgesic agent; Z88.0 Allergy status to penicillin; Z88.8 Allergy status to other drugs, medicaments and biological substances; Z88.1 Allergy status to other antibiotic agents; Z79.899 Other long term (current) drug therapy; Z68.30 Body mass index [BMI] 30.0-30.9, adult
CPT/HCPCS: 36415; 36416; 36430; 71045; 80053; 82274; 82607; 82728; 83010; 83540; 83550; 83615; 83735; 83880; 84484; 84703; 85025; 85046; 86308; 86850; 86900; 86901; 93005; 94760; 94762; 96374; 96376; C9113; G0378; P9016

== ENCOUNTER 2023-07-08 11:48 | Outpatient (CLI) | payer OTHER | END 2023-07-08 11:49 | disposition home or self-care (01) | LOC: CSHMRI 11:48 | PROVIDERS: ATTEND Neuromusculoskeletal Medicine & OMM | DX: G35 Multiple sclerosis (principal); M54.2 Cervicalgia; M54.50 Low back pain, unspecified; R90.82 White matter disease, unspecified; M50.30 Other cervical disc degeneration, unspecified cervical region; M48.8X2 Other specified spondylopathies, cervical region; G95.0 Syringomyelia and syringobulbia; M51.36 Other intervertebral disc degeneration, lumbar region; M51.26 Other intervertebral disc displacement, lumbar region | CPT/HCPCS: 70553; 72148; 72156; 72157 ==

== ENCOUNTER 2023-10-03 15:05 | Emergency (ER) | payer OTHER ==
[2023-10-03] MEDS ORDERED: Lorazepam 2 MG/ML VIAL ONE (16:16)
[2023-10-03 16:50] LABS: #Basophils 0.09 10x3/uL (0.0-0.2); #Eosinphils 1.09 10x3/uL (0.0-0.5); #Monocytes 0.71 10x3/uL (0.0-1.1); %Basophils 0.9 % (0.0-2.0); %Eosinophils 11.2 % (0.0-6.0); %Lymphocytes 26.3 % (18.0-47.0); %Monocytes 7.3 % (0.0-10.0); %Neutrophils 54.2 % (40.0-75.0); Hematocrit 33.5 % (34.9-44.5); Hemoglobin 11.5 g/dL (12.0-15.5); Mean Corpuscular HGB CONC 34.3 g/dL (32.0-36.0); Mean Corpuscular Hemoglobin 33.1 pg (27.0-33.0); Mean Corpuscular Volume 96.5 fl (81.6-98.3); Mean Platelet Volume 9.4 fl (7.4-10.4); Platelet Count 326 10x3/uL (150-450); RBC Distribution Width 12.4 % (11.5-14.5); Red Blood Cell (RBC) Count 3.47 10x6/uL (3.90-5.03); White Blood Cell (WBC) Count 9.8 10x3/uL (3.5-10.5)
[2023-10-03 17:12] LABS: ALT (SGPT) 15 U/L (8-55); AST (SGOT) 16 U/L (5-34); Albumin 3.6 g/dL (3.5-5.0); Alkaline Phosphatase 73 U/L (40-110); Anion Gap 16 mmol/L (10-20); BUN (Urea Nitrogen) 13 mg/dL (7.0-18.7); Bilirubin, Total 0.4 mg/dL (0.2-1.2); Calc. Creatinine Clearance 0 mL/min (70-130); Calcium 9.4 mg/dL (7.8-10.44); Carbon Dioxide 24 mmol/L (22-29); Chloride 101 mmol/L (98-107); Estimated GFR 107; Globulin 3.3 g/dL (2.4-3.5); Glucose 107 mg/dL (70-105); Magnesium 1.7 mg/dL (1.6-2.6); Potassium 3.8 mmol/L (3.5-5.1); Protein, Total 6.9 g/dL (6.0-8.3); Sodium 137 mmol/L (136-145)
[2023-10-03] MEDS ORDERED: levETIRAcetam 500 MG (5 mL) VIAL ONE (18:35)
[2023-10-03 19:41] LABS: Lactic Acid 1.7 mmol/L (0.5-2.2)
== END 2023-10-03 20:48 | disposition short-term general hospital (02) ==
LOC: CSHERS 15:05
DX: G40.909 Epilepsy, unspecified, not intractable, without status epilepticus (principal); I48.91 Unspecified atrial fibrillation; E11.9 Type 2 diabetes mellitus without complications; K21.9 Gastro-esophageal reflux disease without esophagitis; E78.5 Hyperlipidemia, unspecified; Z79.84 Long term (current) use of oral hypoglycemic drugs; Z79.4 Long term (current) use of insulin; Z79.899 Other long term (current) drug therapy
CPT/HCPCS: 36415; 36416; 70450; 71045; 72125; 80053; 83605; 83735; 85025; 96374; 96375; J1953; J2060

== ENCOUNTER 2024-03-05 08:11 | Outpatient (CLI) | payer OTHER | END 2024-03-05 08:12 | disposition home or self-care (01) | LOC: CSHSLEEP 08:11 | PROVIDERS: ATTEND Internal Medicine Critical Care Medicine | DX: G47.33 Obstructive sleep apnea (adult) (pediatric) (principal); R53.83 Other fatigue; R06.83 Snoring; I51.9 Heart disease, unspecified; G47.61 Periodic limb movement disorder | CPT/HCPCS: 95810 ==

== ENCOUNTER 2024-03-29 13:51 | Emergency (ER) | payer OTHER ==
[2024-03-29] MEDS ORDERED: Ibuprofen 200 MG TAB ONE (15:25)
== END 2024-03-29 16:46 | disposition home or self-care (01) ==
LOC: CSHERS 13:51
DX: S99.912A Unspecified injury of left ankle, initial encounter (principal); G40.909 Epilepsy, unspecified, not intractable, without status epilepticus; I48.91 Unspecified atrial fibrillation; E11.9 Type 2 diabetes mellitus without complications; K21.9 Gastro-esophageal reflux disease without esophagitis; W17.2XXA Fall into hole, initial encounter; Z79.84 Long term (current) use of oral hypoglycemic drugs; Z79.85 Long-term (current) use of injectable non-insulin antidiabetic drugs; Z79.899 Other long term (current) drug therapy
CPT/HCPCS: 99283

== ENCOUNTER 2024-04-16 08:24 | Outpatient (CLI) | payer OTHER | END 2024-04-16 08:25 | disposition home or self-care (01) | LOC: CSHSLEEP 08:24 | PROVIDERS: ATTEND Internal Medicine Critical Care Medicine | DX: G47.33 Obstructive sleep apnea (adult) (pediatric) (principal); R53.83 Other fatigue; R06.83 Snoring; I51.9 Heart disease, unspecified; G47.61 Periodic limb movement disorder | CPT/HCPCS: 95811 ==

== ENCOUNTER 2024-04-25 20:43 | Emergency (ER) | payer OTHER ==
[2024-04-26] MEDS ORDERED: Sevoflurane 250 ML INH ANEST BOTTLE ONE (07:03)
== END 2024-04-25 21:15 | disposition left against medical advice (07) ==
LOC: CSHERS 20:43
DX: Z53.21 Procedure and treatment not carried out due to patient leaving prior to being seen by health care provider (principal)

== ENCOUNTER 2024-05-09 07:27 | Outpatient (CLI) | payer OTHER | END 2024-05-09 07:28 | disposition home or self-care (01) | LOC: CSHCT 07:27 | PROVIDERS: ATTEND Orthopaedic Surgery | DX: M25.372 Other instability, left ankle (principal); Z96.7 Presence of other bone and tendon implants; M24.672 Ankylosis, left ankle; M21.072 Valgus deformity, not elsewhere classified, left ankle; M25.872 Other specified joint disorders, left ankle and foot ==

== ENCOUNTER 2024-05-12 22:26 | Emergency (ER) | payer OTHER ==
[2024-05-12 23:07] LABS: #Basophils 0.06 10x3/uL (0.0-0.2); #Eosinophils 0.55 10x3/uL (0.0-0.5); #Neutrophils 4.09 10x3/uL (1.5-8.4); %Basophils 0.7 % (0.0-2.0); %Eosinophils 6.7 % (0.0-6.0); %Lymphocytes 36.8 % (18.0-47.0); %Monocytes 6.1 % (0.0-10.0); %Neutrophils 49.5 % (40.0-75.0); Hematocrit 36.2 % (34.9-44.5); Hemoglobin 12.9 g/dL (12.0-15.5); Mean Corpuscular HGB CONC 35.6 g/dL (32.0-36.0); Mean Corpuscular Hemoglobin 32.7 pg (27.0-33.0); Mean Corpuscular Volume 91.6 fL (81.6-98.3); Mean Platelet Volume 9.5 fL (7.4-10.4); Platelet Count 337 10x3/uL (150-450); RBC Distribution Width 11.7 % (11.5-14.5); Red Blood Cell (RBC) Count 3.95 10x6/uL (3.90-5.03); White Blood Cell (WBC) Count 8.3 10x3/uL (3.5-10.5)
[2024-05-12 23:22] LABS: ALT (SGPT) 17 U/L (8-55); AST (SGOT) 19 U/L (5-34); Albumin 4.3 g/dL (3.5-5.0); Alkaline Phosphatase 78 U/L (40-110); Anion Gap 17 mmol/L (10-20); BUN (Urea Nitrogen) 15 mg/dL (7.0-18.7); Bilirubin, Total 0.4 mg/dL (0.2-1.2); Calc. Creatinine Clearance 0 mL/min (70-130); Calcium 9.7 mg/dL (7.8-10.44); Carbon Dioxide 24 mmol/L (22-29); Chloride 102 mmol/L (98-107); Estimated GFR 106; Globulin 3.1 g/dL (2.4-3.5); Glucose 115 mg/dL (70-105); Potassium 3.8 mmol/L (3.5-5.1); Protein, Total 7.4 g/dL (6.0-8.3); Sodium 139 mmol/L (136-145)
[2024-05-12 23:25] LABS: Troponin I Less than 0.010 ng/mL (< 0.028)
[2024-05-12] MEDS ORDERED: Nitroglycerin 2% Ointment 1 INCH/1 GM Packet ONE (23:27)
[2024-05-13 00:56] LABS: Troponin I Less than 0.010 ng/mL (< 0.028)
== END 2024-05-13 01:48 | disposition home or self-care (01) ==
LOC: CSHERS 22:26
DX: I20.9 Angina pectoris, unspecified (principal)
CPT/HCPCS: 36415; 71045; 80053; 84484; 85025; 93005

== ENCOUNTER 2024-11-22 17:44 | Emergency (ER) | payer MEDICAID ==
[2024-11-22] MEDS ORDERED: Dexamethasone 10 MG/ML VIAL ONE (19:09)
[2024-11-22] MEDS ORDERED: Gabapentin 300 MG CAP ONE (19:11)
[2024-11-22 19:15] LABS: #Basophils 0.06 10x3/uL (0.0-0.2); #Eosinophils 0.36 10x3/uL (0.0-0.5); #Monocytes 0.60 10x3/uL (0.0-1.1); #Neutrophils 6.82 10x3/uL (1.5-8.4); %Basophils 0.6 % (0.0-2.0); %Eosinophils 3.5 % (0.0-6.0); %Lymphocytes 23.7 % (18.0-47.0); %Monocytes 5.8 % (0.0-10.0); %Neutrophils 66.2 % (40.0-75.0); Hematocrit 37.7 % (34.9-44.5); Hemoglobin 13.3 g/dL (12.0-15.5); Mean Corpuscular Hemoglobin 31.0 pg (27.0-33.0); Mean Corpuscular Volume 87.9 fL (81.6-98.3); Platelet Count 356 10x3/uL (150-450); Red Blood Cell (RBC) Count 4.29 10x6/uL (3.90-5.03); White Blood Cell (WBC) Count 10.30 10x3/uL (3.5-10.5)
[2024-11-22] MEDS ORDERED: Ondansetron PF 4 MG/2 ML Vial ONE ×2 (19:15→19:53)
[2024-11-22 19:30] LABS: ALT (SGPT) 12 U/L (Less than 34); AST (SGOT) 20 U/L (11-34); Albumin 4.7 g/dL (3.1-4.5); Alkaline Phosphatase 99 U/L (40-110); Anion Gap 16 mmol/L (10-20); BUN (Urea Nitrogen) 12 mg/dL (7.0-18.7); Bilirubin, Total 0.5 mg/dL (0.3-1.2); Calc. Creatinine Clearance 0 mL/min (70-130); Calcium 9.7 mg/dL (7.8-10.44); Carbon Dioxide 22 mmol/L (22-29); Chloride 98 mmol/L (98-107); Globulin 3.4 g/dL (2.4-3.5); Glucose 83 mg/dL (70-105); Potassium 3.7 mmol/L (3.5-5.1); Sodium 132 mmol/L (136-145)
== END 2024-11-22 20:48 | disposition home or self-care (01) ==
LOC: CSHERS 17:44
DX: R51.9 Headache, unspecified (principal); E87.1 Hypo-osmolality and hyponatremia
CPT/HCPCS: 70450; 80053; 85025; 96374; 96375; 96376; J1100; J2405

== ENCOUNTER 2024-12-24 20:35 | Emergency (ER) | payer MEDICAID ==
[2024-12-24] MEDS ORDERED: levETIRAcetam 500 MG (5 mL) VIAL ONE (21:41)
[2024-12-24 21:49] LABS: Anion Gap 14 mmol/L (10-20); BUN (Urea Nitrogen) 10 mg/dL (7.0-18.7); Calc. Creatinine Clearance 0 mL/min (70-130); Calcium 9.1 mg/dL (7.8-10.44); Carbon Dioxide 24 mmol/L (22-29); Chloride 97 mmol/L (98-107); Glucose 164 mg/dL (70-105); Potassium 3.5 mmol/L (3.5-5.1); Sodium 131 mmol/L (136-145)
[2024-12-24] MEDS ORDERED: carBAMazepine 200 MG TAB PO SCH (23:00)
== END 2024-12-25 00:28 | disposition home or self-care (01) ==
LOC: CSHERS 20:35
DX: G40.909 Epilepsy, unspecified, not intractable, without status epilepticus (principal); E11.9 Type 2 diabetes mellitus without complications; K21.9 Gastro-esophageal reflux disease without esophagitis; Z79.899 Other long term (current) drug therapy; Z79.84 Long term (current) use of oral hypoglycemic drugs; Z79.4 Long term (current) use of insulin
CPT/HCPCS: 36416; 70450; 80048; J1953; J2060

== ENCOUNTER 2024-12-26 09:20 | Inpatient (IN) | payer MEDICAID ==
[2024-12-26 10:37] LABS: #Basophils 0.06 10x3/uL (0.0-0.2); #Eosinophils 0.14 10x3/uL (0.0-0.5); #Monocytes 0.52 10x3/uL (0.0-1.1); #Neutrophils 6.19 10x3/uL (1.5-8.4); %Basophils 0.7 % (0.0-2.0); %Eosinophils 1.7 % (0.0-6.0); %Lymphocytes 14.8 % (18.0-47.0); %Monocytes 6.4 % (0.0-10.0); %Neutrophils 76.3 % (40.0-75.0); Hematocrit 35.6 % (34.9-44.5); Hemoglobin 12.4 g/dL (12.0-15.5); Mean Corpuscular Hemoglobin 32.8 pg (27.0-33.0); Mean Corpuscular Volume 94.2 fL (81.6-98.3); Platelet Count 380 10x3/uL (150-450); Red Blood Cell (RBC) Count 3.78 10x6/uL (3.90-5.03); White Blood Cell (WBC) Count 8.12 10x3/uL (3.5-10.5)
[2024-12-26 10:58] LABS: ALT (SGPT) 11 U/L (Less than 34); AST (SGOT) 17 U/L (11-34); Albumin 4.2 g/dL (3.1-4.5); Alkaline Phosphatase 85 U/L (40-110); Anion Gap 15 mmol/L (10-20); BUN (Urea Nitrogen) 5 mg/dL (7.0-18.7); Bilirubin, Total 0.5 mg/dL (0.3-1.2); Calc. Creatinine Clearance 0 mL/min (70-130); Calcium 8.8 mg/dL (7.8-10.44); Carbon Dioxide 21 mmol/L (22-29); Chloride 108 mmol/L (98-107); Globulin 3.0 g/dL (2.4-3.5); Glucose 102 mg/dL (70-105); Magnesium 1.5 mg/dL (1.6-2.6); Potassium 4.1 mmol/L (3.5-5.1); Sodium 140 mmol/L (136-145)
[2024-12-26 11:03] LABS: Troponin I Less than 0.010 ng/mL (< 0.028)
[2024-12-26] MEDS ORDERED: Glucagon 1 MG/ML KIT IM PRN (20:54)
[2024-12-26] MEDS ORDERED: Senokot S 8.6-50 MG TAB PO PRN (20:54)
[2024-12-26] MEDS ORDERED: Dextrose 50% Abboject 50 ML SYRINGE SLOW IVP PRN (20:54)
[2024-12-26] MEDS ORDERED: Guaifenesin DM 100-10/5 ML UDCUP PO PRN (20:54)
[2024-12-26] MEDS ORDERED: Acetaminophen 325 MG TAB PO PRN (20:54)
[2024-12-26] MEDS ORDERED: Calcium Carbonate 500 MG ChewTAB PO PRN (20:54)
[2024-12-26] MEDS ORDERED: Ondansetron PF 4 MG/2 ML Vial IVP PRN (20:54)
[2024-12-26] MEDS ORDERED: cefTRIAXone (ROCEPHIN) 1 GM VIAL ONE (21:05)
[2024-12-26] MEDS: cefTRIAXone\\ROCEPHIN 1 GM in Sodium Chloride 0.9% 100 ML IVPB SCH (21:20)
[2024-12-26] MEDS ORDERED: Magnesium 2 GM/50 ML BAG (IN WATER) ONE (21:31)
[2024-12-26] MEDS: methylPREDNISolone Sod Succ 1 GM in Sodium Chloride 0.9% 250 ML 250 ML IVPB SCH (21:35)
[2024-12-26] MEDS: Magnesium 2 GM/50 ML(in water) 2 GM in Premix 1 BAG IVPB SCH (21:49)
[2024-12-27 03:52] LABS: Anion Gap 15 mmol/L (10-20); BUN (Urea Nitrogen) 7 mg/dL (7.0-18.7); CK (CPK) 56 U/L (29-168); Calc. Creatinine Clearance 0 mL/min (70-130); Calcium 9.2 mg/dL (7.8-10.44); Carbon Dioxide 23 mmol/L (22-29); Chloride 104 mmol/L (98-107); Glucose 155 mg/dL (70-105); Magnesium 2.1 mg/dL (1.6-2.6); Potassium 3.7 mmol/L (3.5-5.1); Sodium 138 mmol/L (136-145)
[2024-12-27] MEDS ORDERED: Enoxaparin 40 MG (0.4 mL) SYRINGE ONE (08:51)
[2024-12-27] MEDS ORDERED: metFORMIN 500 MG TAB ONE (08:52)
[2024-12-27] MEDS: metFORMIN 500 MG TAB PO SCH (08:54)
[2024-12-27] MEDS: Enoxaparin 40 MG (0.4 mL) SYRINGE SC SCH (10:19)
[2024-12-27] MEDS: Lantus 1000 UNITS/10 ML VIAL SC SCH (10:20)
[2024-12-27] MEDS: Isosorbide Mononitrate 30 MG ER.TAB.S PO SCH (10:22)
[2024-12-27] MEDS ORDERED: METHYLPREDNISOLONE SOD SUCC IVPB SCH (12:00)
[2024-12-27] MEDS ORDERED: [UNRECOGNIZED DRUG - OTHER] IVPB SCH (12:00)
[2024-12-27] MEDS ORDERED: ADMIXTURE FEE IVPB SCH (12:00)
[2024-12-27] MEDS: methylPREDNISolone Sod Succ 1 GM, Admixture Fee 1 EACH in Sodium Chloride 0.9% 250 ML 2... IVPB SCH (14:08)
[2024-12-27 14:15] VITALS: BMI 27.9
[2024-12-27] MEDS: Pantoprazole 40 MG DR.TAB PO SCH (18:03)
[2024-12-27] MEDS: Insulin Glargine 30 UNITS/0.3 ML VIAL SC SCH (20:00)
[2024-12-27] MEDS: DIMETHYL FUMARATE PO SCH (20:58)
[2024-12-28 16:55] VITALS: BP 129/77; TEMP 98.3
== END 2024-12-28 16:35 | disposition home or self-care (01) | DRG 57 ==
LOC: CSHERS 09:20 → CSHERHOLD 19:27 → CSHTELE 12-27 12:26
PROVIDERS: ADMIT Student in an Organized Health Care Education/Training Program; ATTEND Hospitalist
DX: G95.0 Syringomyelia and syringobulbia (principal); N39.0 Urinary tract infection, site not specified; G82.20 Paraplegia, unspecified; G35 Multiple sclerosis; F44.9 Dissociative and conversion disorder, unspecified; G47.33 Obstructive sleep apnea (adult) (pediatric); E78.5 Hyperlipidemia, unspecified; E83.42 Hypomagnesemia; G40.909 Epilepsy, unspecified, not intractable, without status epilepticus; J45.909 Unspecified asthma, uncomplicated; E66.9 Obesity, unspecified; F32.9 Major depressive disorder, single episode, unspecified; F43.10 Post-traumatic stress disorder, unspecified; E11.65 Type 2 diabetes mellitus with hyperglycemia; K21.9 Gastro-esophageal reflux disease without esophagitis; Z79.899 Other long term (current) drug therapy; Z79.84 Long term (current) use of oral hypoglycemic drugs; Z90.49 Acquired absence of other specified parts of digestive tract; Z87.891 Personal history of nicotine dependence; Z79.4 Long term (current) use of insulin; Z68.28 Body mass index [BMI] 28.0-28.9, adult; Z88.8 Allergy status to other drugs, medicaments and biological substances
CPT/HCPCS: 36415; 36416; 70450; 70553; 71045; 72156; 72157; 72158; 76376; 80048; 80053; 80306; 80307; 81001; 82550; 83605; 83735; 84484; 85025; 86140; 87077; 87086; 87186; 93005; 94760; 95813; 96365; 96374; 96375; C9254; J0696; J1650; J1815; J1953; J2060; J2250; J2930; J3475; J7050

== ENCOUNTER 2025-01-15 08:00 | Outpatient (CLI) | payer MEDICAID | END 2025-01-15 13:56 | disposition home or self-care (01) | LOC: CSHMAMMO 08:00 | PROVIDERS: ATTEND Family Medicine | DX: Z78.0 Asymptomatic menopausal state (principal); M85.89 Other specified disorders of bone density and structure, multiple sites | CPT/HCPCS: 77080 ==

== ENCOUNTER 2025-02-22 21:19 | Emergency (ER) | payer MEDICAID | END 2025-02-22 22:43 | disposition left against medical advice (07) | LOC: CSHERS 21:19 | DX: Z53.21 Procedure and treatment not carried out due to patient leaving prior to being seen by health care provider (principal) ==

== ENCOUNTER 2025-03-07 22:21 | Emergency (ER) | payer MEDICAID ==
[2025-03-07 22:51] LABS: #Basophils 0.06 10x3/uL (0.0-0.2); #Eosinophils 0.28 10x3/uL (0.0-0.5); #Monocytes 0.76 10x3/uL (0.0-1.1); #Neutrophils 4.36 10x3/uL (1.5-8.4); %Basophils 0.7 % (0.0-2.0); %Eosinophils 3.3 % (0.0-6.0); %Lymphocytes 34.9 % (18.0-47.0); %Monocytes 9.0 % (0.0-10.0); %Neutrophils 52.0 % (40.0-75.0); Hematocrit 37.9 % (34.9-44.5); Hemoglobin 13.0 g/dL (12.0-15.5); Mean Corpuscular Hemoglobin 31.6 pg (27.0-33.0); Mean Corpuscular Volume 92.0 fL (81.6-98.3); Platelet Count 386 10x3/uL (150-450); Red Blood Cell (RBC) Count 4.12 10x6/uL (3.90-5.03); White Blood Cell (WBC) Count 8.40 10x3/uL (3.5-10.5)
[2025-03-07 23:04] LABS: ALT (SGPT) 16 U/L (Less than 34); AST (SGOT) 25 U/L (11-34); Albumin 5.1 g/dL (3.1-4.5); Alkaline Phosphatase 101 U/L (40-110); Anion Gap 17 mmol/L (10-20); BUN (Urea Nitrogen) 11 mg/dL (7.0-18.7); Bilirubin, Total 0.4 mg/dL (0.3-1.2); Calc. Creatinine Clearance 0 mL/min (70-130); Calcium 10.0 mg/dL (7.8-10.44); Carbon Dioxide 24 mmol/L (22-29); Chloride 95 mmol/L (98-107); Globulin 3.0 g/dL (2.4-3.5); Glucose 102 mg/dL (70-105); Potassium 4.1 mmol/L (3.5-5.1); Sodium 132 mmol/L (136-145)
[2025-03-07 23:10] LABS: Troponin I Less than 0.010 ng/mL (< 0.028)
[2025-03-07] MEDS ORDERED: Ondansetron PF 4 MG/2 ML Vial ONE (23:19)
== END 2025-03-08 00:13 | disposition home or self-care (01) ==
LOC: CSHERS 22:21
DX: R07.9 Chest pain, unspecified (principal); E11.9 Type 2 diabetes mellitus without complications
CPT/HCPCS: 71045; 80053; 84484; 85025; 93005; 96374

== ENCOUNTER 2025-03-12 07:34 | Day surgery (SDC) | payer MEDICAID ==
[2025-03-09 09:21] VITALS: BMI 27.9
[2025-03-12] MEDS ORDERED: PROPOFOL 40 ML ONE (08:46)
[2025-03-12] MEDS ORDERED: Glycopyrrolate 0.2 MG/ML 5 ML SYRINGE ONE (08:46)
[2025-03-12] MEDS ORDERED: Lidocaine 4% Topical Sol 50 ML BOT ONE (10:04)
== END 2025-03-12 11:30 | disposition home or self-care (01) ==
LOC: CSHSDC 07:34
PROVIDERS: ATTEND Otolaryngology
PROC: 4A1ZXQZ Monitoring of Sleep, External Approach (ICD-10-PCS; principal; 2025-03-12)
DX: G47.33 Obstructive sleep apnea (adult) (pediatric) (principal); F32.A Depression, unspecified; Z87.891 Personal history of nicotine dependence; Z88.6 Allergy status to analgesic agent; Z88.0 Allergy status to penicillin; Z91.0110 Allergy to milk products, unspecified; Z88.5 Allergy status to narcotic agent; Z88.8 Allergy status to other drugs, medicaments and biological substances; Z91.048 Other nonmedicinal substance allergy status; Z79.899 Other long term (current) drug therapy
CPT/HCPCS: J2704

== ENCOUNTER 2025-05-05 19:28 | Emergency (ER) | payer MEDICAID ==
[2025-05-05] MEDS ORDERED: Ibuprofen 200 MG TAB ONE (22:22)
== END 2025-05-05 22:36 | disposition home or self-care (01) ==
LOC: CSHERS 19:28
DX: S60.051A Contusion of right little finger without damage to nail, initial encounter (principal); E11.9 Type 2 diabetes mellitus without complications; W18.30XA Fall on same level, unspecified, initial encounter
CPT/HCPCS: 99283